=== PATIENT | female | born 1985 | race Caucasian/White ===

== ENCOUNTER 2016-11-12 13:14 | Emergency (ER) | payer SELFPAY ==
[~2016-11-12] VITALS: Ht 160 cm; Wt 93.0 kg
[~2016-11-12 13:14] MED LIST: CLON-364 PO; ZIPR40CA2 PO
[2016-11-12 13:15] VITALS: BP 153/96
[2016-11-12] MEDS ORDERED: LIDOCAINE 1%-EPI 1:100K, 20ML ONE (13:50)
[2016-11-12] MEDS ORDERED: LIDOCAINE 1%-EPI 1:100K, 20ML SQ ONE (14:00)
[2016-11-12] MEDS ORDERED: OXYcodone/APAP 5/325MG TABLET ONE (14:10)
[2016-11-12] MEDS ORDERED: OXYcodone/APAP 5/325MG TABLET PO ONE (14:30)
== END 2016-11-12 14:27 | disposition home or self-care (01) ==
LOC: ED 13:42
DX: L02.416 Cutaneous abscess of left lower limb (principal); J45.909 Unspecified asthma, uncomplicated; F17.200 Nicotine dependence, unspecified, uncomplicated
CPT/HCPCS: 10060; 99283